=== PATIENT | male | born 1990 | race Caucasian/White ===

== ENCOUNTER 2018-01-27 15:59 | Emergency (ER) | payer OTHER ==
[2018-01-27 16:03] VITALS: BP 115/81; PULSE 100; RESP 18; TEMP 98.1; O2SAT 100
--- NOTE | 2018-01-27 16:22 | C.PDOC ---
History Of Present Illness 27 y/o male comes in for evaluation of right big toe pain developing since yesterday after playing sports. Patient states that he kicked the soccer ball and after that noticed the pain. Pain is localized, and worsens with ambulation. Otherwise patient denies any obvious deformity, weakness, sensorivascular deficits. Time Seen by Provider: 01/27/18 16:11 Chief Complaint (Nursing): Lower Extremity Problem/Injury History Per: Patient History/Exam Limitations: no limitations Onset/Duration Of Symptoms: Days Current Symptoms Are (Timing): Still Present Past Medical History Reviewed: Historical Data, Nursing Documentation, Vital Signs Vital Signs: Last Vital Signs Temp 98.1 F 01/27/18 16:01 Pulse 100 H 01/27/18 16:01 Resp 18 01/27/18 16:01 BP 115/81 01/27/18 16:01 Pulse Ox 100 01/27/18 16:26 - Medical History PMH: No Chronic Diseases Surgical History: No Surg Hx Family History: States: No Known Family Hx - Social History Hx Tobacco Use: No Hx Alcohol Use: No Hx Substance Use: No - Immunization History Hx Tetanus Toxoid Vaccination: No Hx Influenza Vaccination: No Hx Pneumococcal Vaccination: No Review Of Systems Except As Marked, All Systems Reviewed And Found Negative. Musculoskeletal: Positive for: Other (Right big toe pain) Skin: Negative for: Lesions, Bruising Neurological: Negative for: Weakness, Numbness, Incoordination Physical Exam - Physical Exam Appears: Well, Non-toxic, No Acute Distress Skin: Normal Color, Warm, No Rash, No Ecchymosis Head: Atraumatic, Normacephalic Eye(s): bilateral: PERRL Extremity: Normal ROM (with FROM of RLE), Tenderness (mild tenderness over the R 1st MTPJ), Capillary Refill (less than 2sec to R toes), No Deformity, No Swelling, No Other (ecchymosis) Pulses: Left Dorsalis Pedis: Normal, Right Dorsalis Pedis: Normal Neurological/Psych: Oriented x3, Normal Speech, Normal Motor, Normal Sensation, Normal Reflexes ED Course And Treatment O2 Sat by Pulse Oximetry: 100 (RA) Pulse Ox Interpretation: Normal - Other Rad Right 1st toe X-Ray: Interpreted by Me, Viewed By Me Interpretation: (-) acute fx or dislocation Progress Note: Patient treated with PO Motrin. X-ray of right great toe obtained ,. On re-eval, pt is afebrile, hemodynamicalys table. AMbulatory in ED with stable gait. Right foot: mild tenderness over 1st MTPJ, no deformity, no edema or ecchymoses. FAROM, no neurovascular deficits. Imaging review and appears normal. Pt has clinical findings c/w Right 1st toe contusion. Pt advised. ref. to f/u with Podiatry in 2-3 days for re-eval. return if any new changes. Disposition Counseled Patient/Family Regarding: Diagnosis, Need For Followup, Rx Given - Disposition Referrals: [facility] [Outside] Disposition: HOME/ ROUTINE Disposition Time: 16:45 Condition: STABLE Additional Instructions: Light duty, avoid prolong walking for 1 week Follow up with Lead Quality Technician in2 -3 days for re-evaluation. return to ED if any worsening or new changes. Instructions: Toe Injury Forms: [employer] (Croatian) - Clinical Impression Clinical Impression: Toe injury - PA / ASSISTANT FINANCIAL ACCOUNTANT / Resident Statement MD/DO has reviewed & agrees with the documentation as recorded. - Scribe Statement The provider has reviewed the documentation as recorded by the Scribe (Michelle Elkins) All medical record entries made by the Scribe were at my direction and personally dictated by me. I have reviewed the chart and agree that the record accurately reflects my personal performance of the history, physical exam, medical decision making, and the department course for this patient. I have also personally directed, reviewed, and agree with the discharge instructions and disposition.
--- NOTE | 2018-01-27 17:25 | RAD ---
PROCEDURE: Radiographs of the right great toe. TECHNIQUE:: AP radiograph of the right foot, with oblique and lateral view of the right great toe. COMPARISON: None. FINDINGS: BONES: No acute fracture. Bone island in the medial 1st proximal phalanx head. JOINTS: Unremarkable. SOFT TISSUES: Calcaneal region soft tissue swelling. OTHER FINDINGS: None. IMPRESSION: Mild calcaneal region soft tissue swelling. No demonstrated fracture or dislocation.
== END 2018-01-27 17:16 | disposition home or self-care (01) ==
LOC: C.ER 15:59
DX: S90.111A Contusion of right great toe without damage to nail, initial encounter (principal); W21.02XA Struck by soccer ball, initial encounter; Y93.66 Activity, soccer